=== PATIENT | female | born 1960 | race Hispanic/Latino ===

== ENCOUNTER → 2019-01-21 | Outpatient (CLI) | payer BC | END | disposition home or self-care (01) | LOC: RAH 12:35 | PROVIDERS: ATTEND Internal Medicine | DX: M17.0 Bilateral primary osteoarthritis of knee (principal); M19.042 Primary osteoarthritis, left hand; M19.041 Primary osteoarthritis, right hand; M79.89 Other specified soft tissue disorders; M85.841 Other specified disorders of bone density and structure, right hand; M85.842 Other specified disorders of bone density and structure, left hand | CPT/HCPCS: 73130; 73590 ==

== ENCOUNTER → 2019-02-19 | Outpatient (CLI) | payer BC | END | disposition home or self-care (01) | LOC: RAH 14:28 | PROVIDERS: ATTEND Internal Medicine | DX: M25.872 Other specified joint disorders, left ankle and foot (principal) | CPT/HCPCS: 73610 ==

== ENCOUNTER → 2019-03-10 | Outpatient (CLI) | payer BC | END | disposition home or self-care (01) | LOC: RAH 15:55 | PROVIDERS: ATTEND Internal Medicine | DX: M16.11 Unilateral primary osteoarthritis, right hip (principal); M19.012 Primary osteoarthritis, left shoulder; Z91.81 History of falling | CPT/HCPCS: 73030; 73502 ==

== ENCOUNTER → 2019-04-02 | Outpatient (CLI) | payer BC | END | disposition home or self-care (01) | LOC: RAH 06:01 | PROVIDERS: ATTEND Internal Medicine | DX: R11.2 Nausea with vomiting, unspecified (principal); R13.10 Dysphagia, unspecified | CPT/HCPCS: 78264; A9541 ==

== ENCOUNTER → 2019-05-20 | Outpatient (CLI) | payer BC | END | disposition home or self-care (01) | LOC: RAH 10:00 | PROVIDERS: ATTEND Internal Medicine | DX: M79.622 Pain in left upper arm (principal); M79.672 Pain in left foot; M79.671 Pain in right foot; M25.572 Pain in left ankle and joints of left foot; M25.571 Pain in right ankle and joints of right foot; M25.561 Pain in right knee | CPT/HCPCS: 73060; 73560; 73610; 73630 ==

== ENCOUNTER 2020-09-09 18:03 | Emergency (ER) | payer BC | END 2020-09-10 01:24 | disposition home or self-care (01) | LOC: EDH 18:03 | DX: S81.011A Laceration without foreign body, right knee, initial encounter (principal); S93.401A Sprain of unspecified ligament of right ankle, initial encounter; E11.9 Type 2 diabetes mellitus without complications; M19.90 Unspecified osteoarthritis, unspecified site; X58.XXXA Exposure to other specified factors, initial encounter; Y93.89 Activity, other specified; Y92.481 Parking lot as the place of occurrence of the external cause; Y99.8 Other external cause status | CPT/HCPCS: 12044; 73562; 73600 ==

== ENCOUNTER 2020-09-19 08:32 | Emergency (ER) | payer BC | END 2020-09-19 09:56 | disposition home or self-care (01) | LOC: EDH 08:32 | DX: S81.012D Laceration without foreign body, left knee, subsequent encounter (principal); E11.9 Type 2 diabetes mellitus without complications; M19.90 Unspecified osteoarthritis, unspecified site; Z90.710 Acquired absence of both cervix and uterus; X58.XXXD Exposure to other specified factors, subsequent encounter | CPT/HCPCS: 99281 ==

== ENCOUNTER 2021-04-20 08:51 | Day surgery (SDC) | payer BC ==
[2021-04-18 12:41] LABS: BASOPHILS % (AUTO) 0.6 % (0.0-5.0); HEMATOCRIT 40.1 % (36-48); LYMPHOCYTES % (AUTO) 14.1 % (21.0-51.0); MEAN CORPUSCULAR HEMOGLOBIN 26.9 pg (27.0-33.0); MEAN CORPUSCULAR HGB CONC 31.7 g/dL (32.0-36.0); MONOCYTES % (AUTO) 6.3 % (3.0-13.0); NEUTROPHILS % (AUTO) 76.7 % (40.0-77.0); PLATELET COUNT (AUTO) 353 K/uL (130-400); RED BLOOD CELL COUNT(AUTO) 4.72 MIL/uL (4.00-5.50); RED CELL DISTRIBUTION WIDTH 13.8 % (11.0-15.5); WHITE BLOOD COUNT (AUTO) 7.1 K/uL (4.8-10.8)
[2021-04-18 12:51] LABS: POTASSIUM 4.5 mmol/L (3.5-5.1)
[2021-04-19 11:06] VITALS: BP 170/86
[2021-04-20] VITALS (8 sets, daily range): BP systolic 141–171; BP diastolic 46–79
[~2021-04-20] VITALS: Ht 162.6 cm; Wt 109.1 kg
[~2021-04-20 08:51] MED LIST: BACL10TA PO; FERR-72 PO; INSU100V37 SQ; LIRA0.6P SQ; MAGN400T29 PO; MELO10CA3 PO; METF-446 PO; PANT40GR PO; PRAV20TA4 PO; PREG50 PO
[2021-04-20] MEDS ORDERED: 0.9%NACL 1000ML 1,000 ML IV ONE (09:19)
[2021-04-20] MEDS: CEFAZOLIN SODIUM 1 GM VIAL IVP SCH ×2 (09:46→11:40)
[2021-04-20] MEDS ORDERED: EPINEPHRINE 1 MG/ML 30ML VIAL IJ ONE (11:01)
[2021-04-20] MEDS ORDERED: ROPIVACAINE 0.5% 5MG/ML 30ML IJ ONE (11:03)
[2021-04-20] MEDS ORDERED: LIDOCAINE PF 100MG/5ML (2%) SYRINGE 5ML ONE ×2 (11:03→11:07)
[2021-04-20] MEDS ORDERED: ROCURONIUM 10MG/1ML SYR 10 MG/ML ML ONE (11:04)
[2021-04-20] MEDS ORDERED: PROPOFOL 10 MG/ML 20ML VIAL IV ONE (11:04)
[2021-04-20] MEDS ORDERED: MIDAZOLAM HCL 1 MG/ML 2ML VIAL ONE (11:04)
[2021-04-20] MEDS ORDERED: ONDANSETRON 4MG INJ ONE (13:19)
[2021-04-20] MEDS ORDERED: NEOSTIGMINE 5MG/5ML SYR IV ONE (13:19)
[2021-04-20] MEDS ORDERED: GLYCOPYRROLATE 1 MG/5 ML SYRINGE ONE (13:19)
[2021-04-20] MEDS ORDERED: CEPH500T PO (13:32)
[2021-04-20] MEDS ORDERED: HYDR-4060 PO (13:32)
[2021-04-20] MEDS ORDERED: MEPERIDINE-PF 25 MG/ML SYG ONE (13:53)
== END 2021-04-20 15:20 | disposition home or self-care (01) ==
LOC: DAH 08:51
PROVIDERS: ATTEND Orthopaedic Surgery
DX: M75.102 Unspecified rotator cuff tear or rupture of left shoulder, not specified as traumatic (principal); M19.012 Primary osteoarthritis, left shoulder; Z20.822 Contact with and (suspected) exposure to COVID-19; M75.42 Impingement syndrome of left shoulder; M77.8 Other enthesopathies, not elsewhere classified; M75.82 Other shoulder lesions, left shoulder; I10 Essential (primary) hypertension; E11.9 Type 2 diabetes mellitus without complications; E78.5 Hyperlipidemia, unspecified; E66.9 Obesity, unspecified; K21.9 Gastro-esophageal reflux disease without esophagitis; G89.29 Other chronic pain; Z79.899 Other long term (current) drug therapy; Z83.3 Family history of diabetes mellitus; Z90.89 Acquired absence of other organs; Z98.890 Other specified postprocedural states; Z86.73 Personal history of transient ischemic attack (TIA), and cerebral infarction without residual deficits; Z90.710 Acquired absence of both cervix and uterus; Z98.49 Cataract extraction status, unspecified eye; Z68.41 Body mass index [BMI] 40.0-44.9, adult
CPT/HCPCS: 29824; 29826; 29827; 36415; 64415; 76942; 80048; 82948; 85025; 87635; A4215; A4221; A4222; A4223; A4565; A4649 ×2; A4663; A4930 ×2; A6204; C9803; G0168; J0171; J0690; J2001 ×2; J2175; J2250; J2405; J2704; J2710; J2795; J3490; J7030 ×2

== ENCOUNTER → 2023-05-16 | Outpatient (CLI) | payer BC ==
[~2023-05-16] MED LIST changes: +CEPH500T PO; +HYDR-4060 PO
== END | disposition home or self-care (01) ==
LOC: RAH 14:34
PROVIDERS: ATTEND Nurse Practitioner
DX: M19.012 Primary osteoarthritis, left shoulder (principal); M75.82 Other shoulder lesions, left shoulder
CPT/HCPCS: 73221

== ENCOUNTER → 2023-10-16 | Outpatient (CLI) | payer BC | END | disposition home or self-care (01) | LOC: RAH 13:30 | PROVIDERS: ATTEND Neuromusculoskeletal Medicine & OMM | DX: S33.39XA Dislocation of other parts of lumbar spine and pelvis, initial encounter (principal); M47.26 Other spondylosis with radiculopathy, lumbar region; M48.07 Spinal stenosis, lumbosacral region; X58.XXXA Exposure to other specified factors, initial encounter; Y93.89 Activity, other specified; Y92.89 Other specified places as the place of occurrence of the external cause; Y99.8 Other external cause status | CPT/HCPCS: 72114 ==

== ENCOUNTER → 2023-10-24 | Outpatient (CLI) | payer BC | END | disposition home or self-care (01) | LOC: RAH 07:11 | PROVIDERS: ATTEND Student in an Organized Health Care Education/Training Program | DX: S83.242A Other tear of medial meniscus, current injury, left knee, initial encounter (principal); M23.92 Unspecified internal derangement of left knee; X58.XXXA Exposure to other specified factors, initial encounter; Y93.89 Activity, other specified; Y92.89 Other specified places as the place of occurrence of the external cause; Y99.8 Other external cause status | CPT/HCPCS: 73721 ==

== ENCOUNTER → 2024-07-10 | Outpatient (CLI) | payer BC ==
--- NOTE | 2024-07-10 11:23 | HMCIMG ---
MR SPINAL CANAL, LUMBAR WO CON HISTORY: Pain COMPARISON: None TECHNIQUE: MRI of the lumbar spine was performed utilizing multiple pulse sequences in axial , coronal and sagittal plane. Patient was not given contrast through intravenous route. FINDINGS: Grade 1 anterolisthesis is seen at the L5-S1 level. No abnormal signal intensity is seen of the visualized bony structure. No loss of vertebral height is seen. There is straightening of normal lumbar curvature which may be related to muscle spasm or positioning. Degenerative disc signals are present at L3-4, L4-5 and L5-S1 levels. Visualized distal conus is unremarkable. At the L3-4 level, there is spondylotic disc with bilateral ligamentum flavum hypertrophy causing anterior thecal sac compression with bilateral lateral recess stenosis and bilateral neural foraminal stenosis. The thecal sac measures approximately 5.6 mm in its anterior posterior dimension. At the L4-5 level, there is spondylotic disc with central disc protrusion/herniation and bilateral ligamentum flavum hypertrophy causing anterior thecal sac compression with bilateral lateral recess stenosis and bilateral neural foraminal stenosis. The thecal sac measures approximately 6.2 mm in its anterior posterior dimension. At the L5-S1 level, there is spondylotic disc with central disc protrusion/herniation causing anterior thecal sac compression with bilateral lateral recess stenosis and bilateral neural foraminal stenosis. The thecal sac measures approximately 5.1 mm in its anterior posterior dimension. IMPRESSION: 1. DJD with lumbar spine spondylosis and central canal narrowing as described above. Grade 1 anterolisthesis at L5-S1 level.
== END | disposition home or self-care (01) ==
LOC: RAH 08:56
PROVIDERS: ATTEND Neuromusculoskeletal Medicine & OMM
DX: M47.27 Other spondylosis with radiculopathy, lumbosacral region (principal); M48.07 Spinal stenosis, lumbosacral region; M46.06 Spinal enthesopathy, lumbar region
CPT/HCPCS: 72148